=== PATIENT | female | born 1990 | race Caucasian/White ===

== ENCOUNTER 2018-06-18 10:41 | Emergency (ER) | payer OTHER ==
[~2018-06-18] VITALS: Ht 162.6 cm; Wt 86.2 kg
[2018-06-18 11:02] VITALS: BP 117/69
[2018-06-18 11:09] LABS: BILIRUBIN,URINE NEGATIVE (NEG); CLARITY,URINE CLEAR; NITRITE,URINE NEGATIVE (NEG); PH,URINE 5.5; PROTEIN,URINE NEGATIVE (NEG-TRACE); UROBILINOGEN,URINE 0.2 mg/dL (0.2 mg/dL)
[2018-06-18 11:28] LABS: COLOR,URINE STRAW; SQUAMOUS EPITHELIAL CELL,UR MOD /LPF
[2018-06-18 11:29] LABS: BACTERIA,URINE FEW /HPF (0-FEW); RBC,URINE OCC /HPF (0-2); WBC,URINE OCC /HPF (0-4)
[2018-06-18] MEDS ORDERED: metroNIDAZOLE 500 MG TABLET PO ONE (11:30)
[2018-06-18] MEDS ORDERED: AZITHROMYCIN 250 MG TABLET. PO ONE (11:30)
[2018-06-18] MEDS ORDERED: cefTRIAXone IM 250 MG VIAL IM ONE (11:30)
[2018-06-18] MEDS ORDERED: IBUPROFEN 600 MG TABLET. PO ONE (11:30)
--- NOTE | 2018-06-18 12:21 | PHYS DOC ---
Past Medical History Past Medical History: No Pertinent History Past Surgical History: No Surgical History Alcohol Use: Sober Drug Use: Opiates Adult General Chief Complaint Chief Complaint: PELVIC PAIN HPI HPI Patient is a 27 year old female no significant medical history who presents today complaining of mild pelvic pain and requests to have her Mirena removed. Patient states the pain began yesterday. She is not concerned about STDs. She has an appointment with A LOCAL clinic to remove the Mirena tomorrow but she could not wait until then. Patient denies any vaginal bleeding. Review of Systems Review of Systems Constitutional: Denies fever or chills [] GI: Reports pelvic pain, denies nausea, vomiting, bloody stools or diarrhea [] : Denies dysuria or hematuria [] Musculoskeletal: Denies back pain or joint pain [] Integument: Denies rash or skin lesions [] Neurologic: Denies headache, focal weakness or sensory changes [] All other systems were reviewed and found to be within normal limits, except as documented in this note. Current Medications Current Medications Current Medications Medications (Trade) Dose Ordered Sig/Roque Start Time Stop Time Status Last Admin Dose Admin Azithromycin (Zithromax) 1,000 mg 1X ONCE 06/18/18 11:30 06/18/18 11:31 DC 06/18/18 11:45 1,000 MG Ceftriaxone Sodium (Rocephin Im) 250 mg 1X ONCE 06/18/18 11:30 06/18/18 11:31 DC 06/18/18 11:44 250 MG Ibuprofen (Motrin) 600 mg 1X ONCE 06/18/18 11:30 06/18/18 11:31 DC 06/18/18 11:46 600 MG Metronidazole (Flagyl) 2,000 mg 1X ONCE 06/18/18 11:30 06/18/18 11:31 DC 06/18/18 11:44 2,000 MG Allergies Allergies Allergies Coded Allergies Type Severity Reaction Last Updated Verified No Known Drug Allergies 06/18/18 No Physical Exam Physical Exam Constitutional: Well developed, well nourished, no acute distress, non-toxic appearance. [] Abdomen: Bowel sounds normal, soft, no tenderness, no masses, no pulsatile masses. [] Pelvic exam External pelvic appears normal, cervix is closed, no CMT, Mirena strings noted in the cervical os, no adnexal tenderness. Skin: Warm, dry, no erythema, no rash. [] Back: No tenderness, no CVA tenderness. [] Extremities: No tenderness, no cyanosis, no clubbing, ROM intact, no edema. [] Neurologic: Alert and oriented X 3, normal motor function, normal sensory function, no focal deficits noted. [] Psychologic: Affect normal, judgement normal, mood normal. [] Current Patient Data Vital Signs Vital Signs Date Time Temp Pulse Resp B/P (MAP) Pulse Ox O2 Delivery O2 Flow Rate FiO2 06/18/18 11:02 97.7 91 20 117/69 (85) 98 Room Air 97.7 Lab Values Laboratory Tests Test 06/18/18 10:55 06/18/18 10:59 06/18/18 11:10 Urine Collection Type Unknown Urine Color Straw Urine Clarity Clear Urine pH 5.5 Urine Specific [place] 1.020 Urine Protein Negative mg/dL (NEG-TRACE) Urine Glucose (UA) Negative mg/dL (NEG) Urine Ketones (Stick) Negative mg/dL (NEG) Urine Blood Negative (NEG) Urine Nitrite Negative (NEG) Urine Bilirubin Negative (NEG) Urine Urobilinogen Dipstick 0.2 mg/dL (0.2 mg/dL) Urine Leukocyte Esterase Negative (NEG) Urine RBC Occ /HPF (0-2) Urine WBC Occ /HPF (0-4) Urine Squamous Epithelial Cells Mod /LPF Urine Bacteria Few /HPF (0-FEW) Urine Mucus Mod /LPF POC Urine HCG, Qualitative Hcg negative (Negative) Chlamydia DNA Probe Positive (Negative) A Neisseria gonorrhoeae DNA Probe Negative (Negative) Microbiology 06/18/18 Wet Prep - Final, Complete EKG EKG [] Radiology/Procedures Radiology/Procedures [] Course & Med Decision Making Course & Med Decision Making Pertinent Labs and Imaging studies reviewed. (See chart for details) This is a 27-year-old female patient presenting to the ED today complaining of pelvic pain and requesting we remove her Mirena. Patient has an appointment with a local clinic to have it removed tomorrow but she cannot wait until then. Instructed patient to follow-up with the clinic. Informed patient we do not routinely remove the IUD is in the emergency room. Dragon Disclaimer Dragon Disclaimer This electronic medical record was generated, in whole or in part, using a voice recognition dictation system. Departure Departure Impression: Primary Impression: Pelvic pain Disposition: HOME, SELF-CARE Condition: STABLE Referrals: UNKNOWN PCP NAME (PCP) follow up with [facility] tomorrow as scheduled Patient Instructions: Pelvic Pain, Female, [id number] Additional Instructions: You were evaluated in the emergency for pelvic pain. Please follow-up with [facility] tomorrow if you desire to have the IUD removed. We do not routinely remove IUDs in the emergency room. Attending Signature Attending Signature I have reviewed the PA/CHARGER OPERATOR HELPER's note and plan of care. I was available for consultation as needed during the patient's visit in the emergency department. I agree with the clinical impression, plan, and disposition. LANE MENDEZ APRN Jun 18, 2018 12:21 ALONSO LOREDO DO Jun 20, 2018 17:26
[2018-06-19 22:14] LABS: GC PROBE Negative (Negative)
== END 2018-06-18 12:38 | disposition home or self-care (01) ==
LOC: ER 10:41
DX: R10.2 Pelvic and perineal pain (principal)
CPT/HCPCS: 81001; 81025; 87491; 87591; 96372; 99284; J0696; Q0111; Q0144

== ENCOUNTER 2018-06-29 14:33 | Emergency (ER) | payer OTHER ==
[~2018-06-29] VITALS: Ht 162.6 cm; Wt 87.5 kg
[2018-06-29 14:53] VITALS: BP 136/69
[2018-06-29] MEDS ORDERED: HYDR25TA PO (15:17)
--- NOTE | 2018-06-29 15:17 | PHYS DOC ---
Past Medical History Past Medical History: Anxiety, Depression Additional Past Medical Histor: Alcoholism Past Surgical History: No Surgical History Alcohol Use: Sober Drug Use: Opiates Adult General Chief Complaint Chief Complaint: WITHDRAWL HPI HPI Patient is a 27 year old [f__sex] who presents with [] Review of Systems Review of Systems Constitutional: Denies fever or chills [] Eyes: Denies change in visual acuity, redness, or eye pain [] HENT: Denies nasal congestion or sore throat [] Respiratory: Denies cough or shortness of breath [] Cardiovascular: No additional information not addressed in HPI [] GI: Denies abdominal pain, nausea, vomiting, bloody stools or diarrhea [] : Denies dysuria or hematuria [] Musculoskeletal: Denies back pain or joint pain [] Integument: Denies rash or skin lesions [] Neurologic: Denies headache, focal weakness or sensory changes [] Endocrine: Denies polyuria or polydipsia [] All other systems were reviewed and found to be within normal limits, except as documented in this note. Allergies Allergies Allergies Coded Allergies Type Severity Reaction Last Updated Verified No Known Drug Allergies 06/18/18 No Physical Exam Physical Exam Constitutional: Well developed, well nourished, no acute distress, non-toxic appearance. [] HENT: Normocephalic, atraumatic, bilateral external ears normal, oropharynx moist, no oral exudates, nose normal. [] Eyes: PERRLA, EOMI, conjunctiva normal, no discharge. [] Neck: Normal range of motion, no tenderness, supple, no stridor. [] Cardiovascular:Heart rate regular rhythm, no murmur [] Lungs & Thorax: Bilateral breath sounds clear to auscultation [] Abdomen: Bowel sounds normal, soft, no tenderness, no masses, no pulsatile masses. [] Skin: Warm, dry, no erythema, no rash. [] Back: No tenderness, no CVA tenderness. [] Extremities: No tenderness, no cyanosis, no clubbing, ROM intact, no edema. [] Neurologic: Alert and oriented X 3, normal motor function, normal sensory function, no focal deficits noted. [] Psychologic: Affect normal, judgement normal, mood normal. [] Current Patient Data Vital Signs Vital Signs Date Time Temp Pulse Resp B/P (MAP) Pulse Ox O2 Delivery O2 Flow Rate FiO2 06/29/18 14:53 98.4 89 20 136/69 (91) 98 Room Air 98.4 EKG EKG [] Radiology/Procedures Radiology/Procedures [] Course & Med Decision Making Course & Med Decision Making Pertinent Labs and Imaging studies reviewed. (See chart for details) [] Dragon Disclaimer Dragon Disclaimer This electronic medical record was generated, in whole or in part, using a voice recognition dictation system. Departure Departure Impression: Primary Impression: Anxiety Disposition: HOME, SELF-CARE Condition: STABLE Referrals: UNKNOWN PCP NAME (PCP) Patient Instructions: Anxiety and Panic Attacks Additional Instructions: Follow-up with your pharmacy on Sunday or call [facility] to straighten it your prescriptions. If worsening return to the emergency department. Scripts Hydroxyzine Hcl (HYDROXYZINE HCL) 25 Mg Tablet 1 TAB PO BID for anxiety, #15 TAB Prov: LEXX HODGSON APRN 06/29/18 LEXX HODGSON APRN Jun 29, 2018 15:17
== END 2018-06-29 15:20 | disposition home or self-care (01) ==
LOC: ER 14:33
DX: F41.9 Anxiety disorder, unspecified (principal); F32.9 Major depressive disorder, single episode, unspecified; F10.20 Alcohol dependence, uncomplicated; Y90.9 Presence of alcohol in blood, level not specified
CPT/HCPCS: 99284

== ENCOUNTER 2018-08-08 20:03 | Emergency (ER) | payer OTHER ==
[~2018-08-08] VITALS: Ht 162.6 cm; Wt 90.7 kg
[~2018-08-08 20:03] MED LIST: HYDR25TA PO
[2018-08-08 21:13] LABS: BILIRUBIN,URINE NEGATIVE (NEG); CLARITY,URINE CLEAR; COLOR,URINE YELLOW; NITRITE,URINE NEGATIVE (NEG); PH,URINE 6.5; PROTEIN,URINE NEGATIVE (NEG-TRACE)
[2018-08-08 21:19] LABS: BACTERIA,URINE 0 /HPF (0-FEW); RBC,URINE 0 /HPF (0-2); SPERM,URINE PRESENT /HPF; SQUAMOUS EPITHELIAL CELL,UR FEW /LPF; WBC,URINE RARE /HPF (0-4)
[2018-08-08 21:26] LABS: BASO # 0.1 x10^3/uL (0.0-0.2); BASO % 1 % (0-3); EOS % 0 % (0-3); HEMATOCRIT 39.5 % (36.0-47.0); HEMOGLOBIN 13.8 g/dL (12.0-15.5); LYMPH # 2.4 x10^3/uL (1.0-4.8); LYMPH % 25 % (24-48); MEAN CORPUSCULAR HEMOGLOBIN 32 pg (25-35); MEAN CORPUSCULAR HGB CONC 35 g/dL (31-37); MEAN CORPUSCULAR VOLUME 92 fL (79-100); MONO # 0.5 x10^3/uL (0.0-1.1); MONO % 6 % (0-9); NEUT # 6.7 x10^3uL (1.8-7.7); NEUT % 69 % (31-73); PLATELET COUNT 207 x10^3/uL (140-400); RED BLOOD COUNT 4.28 x10^6/uL (3.50-5.40); RED CELL DISTRIBUTION WIDTH 13.7 % (11.5-14.5); WHITE BLOOD COUNT 9.7 x10^3/uL (4.0-11.0)
[2018-08-08 21:38] LABS: CALCIUM 9.5 mg/dL (8.5-10.1); CREATININE 0.8 mg/dL (0.6-1.0); GFR 87.4; POTASSIUM 3.7 mmol/L (3.5-5.1)
[2018-08-08 21:44] LABS: ALBUMIN 3.5 g/dL (3.4-5.0); ALBUMIN/GLOBULIN RATIO 0.9 (1.0-1.7); TOTAL BILIRUBIN 0.5 mg/dL (0.2-1.0); TOTAL PROTEIN 7.5 g/dL (6.4-8.2)
[2018-08-08 23:31] VITALS: BP 120/58
--- NOTE | 2018-08-08 23:49 | RAD ---
OB <14 WKS W/TV Clinical Indication: ABD PAIN, DETOX, + PREG TEST<, . BETA 857 Comparison: None. TECHNIQUE: Real-time ultrasound imaging of the pelvis using transabdominal and transvaginal window is performed. Findings: Retroverted uterus. Uterus measures 9.4 x 5.5 x 4.7 cm. No focal abnormality. Cervix length is 3.8 cm. The endometrial stripe is thickened measuring 2.1 cm. There is a tiny cystic structure along the endometrium near the fundus. No internal contents are seen. If this is a gestational sac it measures 0.3 cm, 5 weeks and 0 days. EDC ultrasound is 04/10/2019. Normal blood flow in the maternal ovaries. There is a right ovary functional cyst measuring up to 2.9 cm. IMPRESSION: Tiny intrauterine cystic structure may be an early gestational sac. If so, the estimated sonographic gestational age is 5 weeks and 0 days. A yolk sac or pole are not identified which is not unexpected. A failed first trimester or ectopic are other considerations. Recommend serial quantitative beta hCG and consideration of short-term follow-up ultrasound to definitively evaluate for IUP. Electronically signed by: Chaim Jacome MD (08/08/2018 11:44 PM) [facility]
--- NOTE | 2018-08-08 23:56 | PHYS DOC ---
Past Medical History Past Medical History: Anxiety, Depression Additional Past Medical Histor: Alcoholism, FORMER DRUG ABUSE Past Surgical History: No Surgical History Alcohol Use: Heavy Additional Information: PINT OF VODKA DAILY, TODAY IS FIRST DAY SOBER Drug Use: Marijuana Adult General Chief Complaint Chief Complaint: ABDOMINAL PAIN IN HPI HPI Patient is a 27 year old female who presents with last missed her period being June 19, 2018. Patient is having lower abdominal pain that started this morning. Patient states that she is an alcoholic and drinks a pint or more of hard liquor a day. Patient also states that she was diagnosed with a UTI 5 days ago she is currently taking Keflex antibiotic. Patient does have a primary care but she does not have an OB doctor. Patient denies vaginal bleeding or vaginal discharge. Patient's last drink was one pint yesterday. Review of Systems Review of Systems Constitutional: Denies fever or chills [] Eyes: Denies change in visual acuity, redness, or eye pain [] HENT: Denies nasal congestion or sore throat [] Respiratory: Denies cough or shortness of breath [] Cardiovascular: No additional information not addressed in HPI [] GI: Denies abdominal pain, nausea, vomiting, bloody stools or diarrhea [] : Denies dysuria or hematuria [] Musculoskeletal: Denies back pain or joint pain [] Integument: Denies rash or skin lesions [] Neurologic: Denies headache, focal weakness or sensory changes [] Endocrine: Denies polyuria or polydipsia [] All other systems were reviewed and found to be within normal limits, except as documented in this note. Allergies Allergies Allergies Coded Allergies Type Severity Reaction Last Updated Verified No Known Drug Allergies 06/18/18 No Physical Exam Physical Exam Constitutional: Well developed, well nourished, no acute distress, non-toxic appearance. [] HENT: Normocephalic, atraumatic, bilateral external ears normal, oropharynx moist, no oral exudates, nose normal. [] Eyes: PERRLA, EOMI, conjunctiva normal, no discharge. [] Neck: Normal range of motion, no tenderness, supple, no stridor. [] Cardiovascular:Heart rate regular rhythm, no murmur [] Lungs & Thorax: Bilateral breath sounds clear to auscultation [] Abdomen: Bowel sounds normal, soft, no tenderness, no masses, no pulsatile masses. [] Skin: Warm, dry, no erythema, no rash. [] Back: No tenderness, no CVA tenderness. [] Extremities: No tenderness, no cyanosis, no clubbing, ROM intact, no edema. [] Neurologic: Alert and oriented X 3, normal motor function, normal sensory function, no focal deficits noted. [] Psychologic: Affect normal, judgement normal, mood normal. [] Current Patient Data Vital Signs Vital Signs Date Time Temp Pulse Resp B/P (MAP) Pulse Ox O2 Delivery O2 Flow Rate FiO2 08/08/18 23:01 76 114/70 (85) 98 Room Air 08/08/18 20:47 97.7 19 97.7 Lab Values Laboratory Tests Test 08/08/18 20:00 08/08/18 20:14 08/08/18 21:15 Urine Collection Type Unknown Urine Color Yellow Urine Clarity Clear Urine pH 6.5 Urine Specific [place] 1.020 Urine Protein Negative mg/dL (NEG-TRACE) Urine Glucose (UA) Negative mg/dL (NEG) Urine Ketones (Stick) Negative mg/dL (NEG) Urine Blood Negative (NEG) Urine Nitrite Negative (NEG) Urine Bilirubin Negative (NEG) Urine Urobilinogen Dipstick 1.0 mg/dL (0.2 mg/dL) Urine Leukocyte Esterase Negative (NEG) Urine RBC 0 /HPF (0-2) Urine WBC Rare /HPF (0-4) Urine Squamous Epithelial Cells Few /LPF Urine Bacteria 0 /HPF (0-FEW) Urine Mucus Slight /LPF Urine Sperm Present /HPF POC Urine HCG, Qualitative Hcg positive (Negative) White Blood Count 9.7 x10^3/uL (4.0-11.0) Red Blood Count 4.28 x10^6/uL (3.50-5.40) Hemoglobin 13.8 g/dL (12.0-15.5) Hematocrit 39.5 % (36.0-47.0) Mean Corpuscular Volume 92 fL (79-100) Mean Corpuscular Hemoglobin 32 pg (25-35) Mean Corpuscular Hemoglobin Concent 35 g/dL (31-37) Red Cell Distribution Width 13.7 % (11.5-14.5) Platelet Count 207 x10^3/uL (140-400) Neutrophils (%) (Auto) 69 % (31-73) Lymphocytes (%) (Auto) 25 % (24-48) Monocytes (%) (Auto) 6 % (0-9) Eosinophils (%) (Auto) 0 % (0-3) Basophils (%) (Auto) 1 % (0-3) Neutrophils # (Auto) 6.7 x10^3uL (1.8-7.7) Lymphocytes # (Auto) 2.4 x10^3/uL (1.0-4.8) Monocytes # (Auto) 0.5 x10^3/uL (0.0-1.1) Eosinophils # (Auto) 0.0 x10^3/uL (0.0-0.7) Basophils # (Auto) 0.1 x10^3/uL (0.0-0.2) Maternal Serum HCG Beta Subunit 857 mIU/mL (0-5) H Sodium Level 136 mmol/L (136-145) Potassium Level 3.7 mmol/L (3.5-5.1) Chloride Level 99 mmol/L (98-107) Carbon Dioxide Level 27 mmol/L (21-32) Anion Gap 10 (6-14) Blood Urea Nitrogen 11 mg/dL (7-20) Creatinine 0.8 mg/dL (0.6-1.0) Estimated GFR (Cockcroft-Gault) 87.4 BUN/Creatinine Ratio 14 (6-20) Glucose Level 81 mg/dL (70-99) Calcium Level 9.5 mg/dL (8.5-10.1) Total Bilirubin 0.5 mg/dL (0.2-1.0) Aspartate Amino Transferase (AST) 36 U/L (15-37) Alanine Aminotransferase (ALT) 48 U/L (14-59) Alkaline Phosphatase 78 U/L (46-116) Total Protein 7.5 g/dL (6.4-8.2) Albumin 3.5 g/dL (3.4-5.0) Albumin/Globulin Ratio 0.9 (1.0-1.7) L Lipase 76 U/L (73-393) Ethyl Alcohol Level < 10 mg/dL (0-10) Laboratory Tests 08/08/18 21:15 Laboratory Tests 08/08/18 21:15 Microbiology 08/08/18 Wet Prep - Final, Complete EKG EKG [] Radiology/Procedures Radiology/Procedures [] Impressions: IMAGING REPORT Signed PATIENT: ELLY SORENSEN ACCOUNT: [id number] : 1990 LOCATION: ER AGE: 27 SEX: F EXAM STATUS: REG ER ORD. PHYSICIAN: TACHO CALI APRN REASON: LMP 11/14 AND ABDOMINAL PAIN PROCEDURE: OB <14 WKS W/TV OB <14 WKS W/TV Clinical Indication: ABD PAIN, DETOX, + PREG TEST<, . BETA 857 Comparison: None. TECHNIQUE: Real-time ultrasound imaging of the pelvis using transabdominal and transvaginal window is performed. Findings: Retroverted uterus. Uterus measures 9.4 x 5.5 x 4.7 cm. No focal abnormality. Cervix length is 3.8 cm. The endometrial stripe is thickened measuring 2.1 cm. There is a tiny cystic structure along the endometrium near the fundus. No internal contents are seen. If this is a gestational sac it measures 0.3 cm, 5 weeks and 0 days. EDC ultrasound is 04/10/2019. Normal blood flow in the maternal ovaries. There is a right ovary functional cyst measuring up to 2.9 cm. IMPRESSION: Tiny intrauterine cystic structure may be an early gestational sac. If so, the estimated sonographic gestational age is 5 weeks and 0 days. A yolk sac or pole are not identified which is not unexpected. A failed first trimester or ectopic are other considerations. Recommend serial quantitative beta hCG and consideration of short-term follow-up ultrasound to definitively evaluate for IUP. Electronically signed by: Chaim Jacome MD (08/08/2018 11:44 PM) [facility] DICTATED and SIGNED BY: CHAIM JACOME MD DATE: 08/08/18 2336 Course & Med Decision Making Course & Med Decision Making Patient is a 27 year old female who presents with last missed her period being June 19, 2018. Patient is having lower abdominal pain that started this morning. Patient states that she is an alcoholic and drinks a pint or more of hard liquor a day. Patient also states that she was diagnosed with a UTI 5 days ago she is currently taking Keflex antibiotic. Patient does have a primary care but she does not have an OB doctor. Patient denies vaginal bleeding or vaginal discharge. Patient's last drink was one pint yesterday. Alert and oriented. Skin is pink warm and dry. Mucous membranes moist. Patient has lower mid abdominal tenderness with palpation but rest of abdomen is soft and nontender. Lungs are clear to auscultation all lobes. Heart rate regular without murmur. Afebrile. Patient denies any dysuria. Patient's chest for Chlamydia and gonorrhea and a wet mount is done per pelvic exam. Patient refuses any treatment for STDs at this time. Wet mount is negative for findings, and her urinalysis is negative for infection, blood type is O+. Patient denies any pain at this time. She denies any nausea or diarrhea. She is no known drug allergies. Pelvic Exam: Lamps Tester And Inspector present Abdomen: Nontender External Genitalia: Normal Skin Speculum: Normal vaginal mucosa, normal cervical discharge Bimanual: No adnexal masses or tenderness, No CMT Blood work is unremarkable. Pelvic ultrasound shows Tiny intrauterine cystic structure may be an early gestational sac. If so,the estimated sonographic gestational age is 5 weeks and 0 days. A yolk sac or pole are not identified which is not unexpected. A failed first trimester or ectopic are other considerations. Recommend serial quantitative beta hCG and consideration of short-term follow-up ultrasound to definitively evaluate for IUP. Patient is discharged home and told to call tomorrow morning her primary care and OB doctor. Patient is given description of withdrawal symptoms. Vital signs are stable and patient is stable at this time. Patient is discharged home. Dragon Disclaimer Dragon Disclaimer This electronic medical record was generated, in whole or in part, using a voice recognition dictation system. Departure Departure Impression: Primary Impression: Abdominal pain in Disposition: 01 HOME, SELF-CARE Condition: STABLE Referrals: UNKNOWN PCP NAME (PCP) JOHNY CAMEJO Jr, MD Patient Instructions: Abdominal Pain During Additional Instructions: Call primary care and OB doctor tomorrow morning. Continue taking antibiotic for UTI and started taking vitamins. Do not drink or do drugs. Problem Qualifiers Primary Impression: Abdominal pain in Trimester: first trimester Qualified Codes: O26.891 - Other specified related conditions, first trimester; R10.9 - Unspecified abdominal pain TACHO CALI STUDY ABROAD ADVISOR Aug 08, 2018 23:56
[2018-08-12 13:19] LABS: GC PROBE Negative (Negative)
== END 2018-08-09 00:12 | disposition home or self-care (01) ==
LOC: ER 20:03
DX: O26.891 Other specified pregnancy related conditions, first trimester (principal); R10.30 Lower abdominal pain, unspecified; Z3A.01 Less than 8 weeks gestation of pregnancy; O99.311 Alcohol use complicating pregnancy, first trimester; Y90.0 Blood alcohol level of less than 20 mg/100 ml
CPT/HCPCS: 36415; 76801; 76817; 80053; 81001; 81025; 83690; 84702; 85025; 86850; 86900; 86901; 87491; 87591; 99284; G0480; Q0111

== ENCOUNTER 2018-10-10 10:35 | Emergency (ER) | payer SELFPAY ==
[~2018-10-10] VITALS: Ht 162.6 cm; Wt 96.6 kg
[2018-10-10 10:58] LABS: BILIRUBIN,URINE NEGATIVE (NEG); CLARITY,URINE CLEAR; COLOR,URINE YELLOW; NITRITE,URINE NEGATIVE (NEG); PROTEIN,URINE NEGATIVE (NEG-TRACE)
[2018-10-10 11:14] LABS: SQUAMOUS EPITHELIAL CELL,UR MOD /LPF
[2018-10-10 11:16] LABS: BACTERIA,URINE 0 /HPF (0-FEW); RBC,URINE 0 /HPF (0-2); WBC,URINE OCC /HPF (0-4)
[2018-10-10] MEDS ORDERED: cefTRIAXone IM 250 MG VIAL IM ONE (11:45)
[2018-10-10] MEDS ORDERED: AZITHROMYCIN 250 MG TABLET. PO ONE (11:45)
[2018-10-10 12:00] VITALS: BP 127/83
--- NOTE | 2018-10-10 12:07 | PHYS DOC ---
Past Medical History Past Medical History: Anxiety, Depression Additional Past Medical Histor: Alcoholism, FORMER DRUG ABUSE Past Surgical History: No Surgical History Alcohol Use: Heavy Drug Use: Marijuana Adult General Chief Complaint Chief Complaint: PELVIC PAIN HPI HPI Patient is a 27 year old female, accompanied by her significant other, with complaints of needing treatment for chlamydia. Patient states that she was diagnosed with chlamydia two months ago, and treated for it but her partner never got treated. She denies any fever, abdominal pain, back pain, nausea, vomiting, diarrhea, dysuria, increase urinary frequency, or hematuria. Patient reports foul-smelling yellow vaginally discharge. patient states she is currently , 4, para 3. She reports concern that the chlamydia could affect the baby. She denies any vaginal bleeding, pelvic pain, or cramping. her LMP was June [id number]. Review of Systems Review of Systems Constitutional: Denies fever or chills [] Eyes: Denies changes HENT: Denies nasal congestion or sore throat [] Respiratory: Denies cough or shortness of breath [] Cardiovascular: No additional information not addressed in HPI [] GI: Denies abdominal pain, nausea, vomiting, or diarrhea [] : see HPI Musculoskeletal: Denies back pain Integument: Denies rash or skin lesions [] Neurologic: Denies headache Current Medications Current Medications Current Medications Medications (Trade) Dose Ordered Sig/Roque Start Time Stop Time Status Last Admin Dose Admin Azithromycin (Zithromax) 1,000 mg 1X ONCE 10/10/18 11:45 10/10/18 11:46 DC 10/10/18 11:58 1,000 MG Ceftriaxone Sodium (Rocephin Im) 250 mg 1X ONCE 10/10/18 11:45 10/10/18 11:46 DC 10/10/18 11:58 250 MG Allergies Allergies Allergies Coded Allergies Type Severity Reaction Last Updated Verified No Known Drug Allergies 06/18/18 No Physical Exam Physical Exam Constitutional: Well developed, well nourished, no acute distress, non-toxic appearance. [] HENT: Normocephalic, atraumatic, bilateral external ears normal, nose normal. [ ] Eyes: conjunctiva normal, no discharge. [] Neck: Normal range of motion, no stridor. [] Pelvic Exam: Salad Counter Attendant present Deedee RN Abdomen: Nontender, soft External Genitalia: Normal Skin Speculum: Normal vaginal mucosa, purulent cervical discharge, os closed Bimanual: No adnexal masses or tenderness, CMT Skin: Warm, dry, no erythema, no rash. [] Extremities: No cyanosis, ROM intact Neurologic: Alert and oriented X 3, no focal deficits noted. [] Psychologic: Affect normal, judgement normal, mood normal. [] Current Patient Data Vital Signs Vital Signs Date Time Temp Pulse Resp B/P (MAP) Pulse Ox O2 Delivery O2 Flow Rate FiO2 10/10/18 12:00 92 16 127/83 (98) 98 Room Air 10/10/18 11:00 98.1 98.1 Lab Values Laboratory Tests Test 10/10/18 10:46 10/10/18 10:51 10/10/18 11:32 Urine Collection Type Unknown Urine Color Yellow Urine Clarity Clear Urine pH 6.0 Urine Specific [place] 1.025 Urine Protein Negative mg/dL (NEG-TRACE) Urine Glucose (UA) Negative mg/dL (NEG) Urine Ketones (Stick) Negative mg/dL (NEG) Urine Blood Negative (NEG) Urine Nitrite Negative (NEG) Urine Bilirubin Negative (NEG) Urine Urobilinogen Dipstick 1.0 mg/dL (0.2 mg/dL) Urine Leukocyte Esterase Negative (NEG) Urine RBC 0 /HPF (0-2) Urine WBC Occ /HPF (0-4) Urine Squamous Epithelial Cells Mod /LPF Urine Bacteria 0 /HPF (0-FEW) Urine Mucus Mod /LPF POC Urine HCG, Qualitative Hcg positive (Negative) Chlamydia DNA Probe Positive (Negative) A Neisseria gonorrhoeae DNA Probe Negative (Negative) Microbiology 10/10/18 Wet Prep - Final, Complete EKG EKG [] Radiology/Procedures Radiology/Procedures [] Course & Med Decision Making Course & Med Decision Making Pertinent Labs and Imaging studies reviewed. (See chart for details) dx: contact with and suspected exposure to infections with a predominately sexual mode of transmission, concern about sexually-transmitted disease in female patient was treated prophylactically with 250 mg of IM Rocephin, and 1 g of PO Zithromax and instructed to avoid having intercourse until the results of gonorrhea and chlamydia testing are available. patient notified that these results will not be available for 48 hours. If one or both of these tests is positive, patient needs to to refrain from intercourse for approximately 2 weeks following the treatment of any current partners. Follow up with your primary care doctor if symptoms persist, return to the ER if symptoms worsen. Pt verbalized an understanding of discharge, medications, follow-up, home care, and return to ED precautions, was in agreement with POC. [] Dragon Disclaimer Dragon Disclaimer This electronic medical record was generated, in whole or in part, using a voice recognition dictation system. Departure Departure Impression: Primary Impression: Contact with and (suspected) exposure to infections with a predominantly sexual mode of transmission Additional Impression: Concern about sexually transmitted disease in female without diagnosis Disposition: HOME, SELF-CARE Condition: STABLE Referrals: UNKNOWN PCP NAME (PCP) Patient Instructions: Sexually Transmitted Diseases (STD) In Additional Instructions: You were treated with 250 mg of IM Rocephin, and 1 g of PO Zithromax. Avoid having intercourse until the results of gonorrhea and chlamydia testing are available, these results will not be available for 48 hours. If one or both of these tests is positive, you need to refrain from intercourse for approximately 2 weeks following the treatment of any current partners. Follow up with your primary care doctor if symptoms persist, return to the ER if symptoms worsen. Problem Qualifiers GUCCI ENCINAS APRN Oct 10, 2018 12:06
[2018-10-14 14:19] LABS: GC PROBE Negative (Negative)
== END 2018-10-10 12:28 | disposition home or self-care (01) ==
LOC: ER 10:35
DX: O98.319 Other infections with a predominantly sexual mode of transmission complicating pregnancy, unspecified trimester (principal); O99.340 Other mental disorders complicating pregnancy, unspecified trimester; O99.310 Alcohol use complicating pregnancy, unspecified trimester; Z20.2 Contact with and (suspected) exposure to infections with a predominantly sexual mode of transmission; F41.9 Anxiety disorder, unspecified; F32.9 Major depressive disorder, single episode, unspecified; F10.20 Alcohol dependence, uncomplicated; Y90.9 Presence of alcohol in blood, level not specified; Z3A.00 Weeks of gestation of pregnancy not specified
CPT/HCPCS: 81001; 81025; 96372; 99283; J0696; Q0111; Q0144; 36415; 87491; 87591

== ENCOUNTER 2018-10-10 23:39 | Emergency (ER) | payer SELFPAY ==
[~2018-10-10] VITALS: Ht 162.6 cm; Wt 96.6 kg
[2018-10-10 23:39] VITALS: BP 157/84
[2018-10-11] MEDS ORDERED: ACETAMINOPHEN 325 MG TABLET. PO ONE (00:15)
--- NOTE | 2018-10-11 00:15 | PHYS DOC ---
Past Medical History Past Medical History: Anxiety, Depression Additional Past Medical Histor: Alcoholism, FORMER DRUG ABUSE (ERIN DURAN) Past Surgical History: No Surgical History (ERIN DURAN) Alcohol Use: None Drug Use: None (ERIN DURAN) Adult General Chief Complaint Chief Complaint: Neck Pain [facility] HPI Patient is a 27 year old female whom is 15 weeks () presents to the ED complaining of neck pain times one hour ago. Patient states she was laying in a hammock and slipped and fell back and hit the ground. States it was a whiplash type injury. States she landed on her upper back. Describes the pain as sharp. Rates the pain as 6 out of 10. States she has not taken anything for the pain. States she came to get checked out because she was having neck pain. Denies decreased range of motion, fever, nausea/vomiting, abdominal pain, vaginal discharge/bleeding, flank pain, chest pain, shortness of breath or symptoms prior to fall. (ERIN DURAN) Review of Systems Review of Systems Constitutional: Denies fever or chills [] Eyes: Denies change in visual acuity, redness, or eye pain [] HENT: Denies nasal congestion or sore throat [] Respiratory: Denies cough or shortness of breath [] Cardiovascular: No additional information not addressed in HPI [] GI: Denies abdominal pain, nausea, vomiting, bloody stools or diarrhea [] : Denies dysuria or hematuria [] Musculoskeletal: Complains of neck pain. Denies back pain or joint pain [] Integument: Denies rash or skin lesions [] Neurologic: Denies headache, focal weakness or sensory changes [] All other systems were reviewed and found to be within normal limits, except as documented in this note. (ERIN DURAN) Current Medications Current Medications Current Medications Medications (Trade) Dose Ordered Sig/Roque Start Time Stop Time Status Last Admin Dose Admin Acetaminophen (Tylenol) 650 mg 1X ONCE 10/11/18 00:15 10/11/18 00:22 DC 10/11/18 00:19 650 MG (IHSAN DIAZ MD) Allergies Allergies Allergies Coded Allergies Type Severity Reaction Last Updated Verified No Known Drug Allergies 06/18/18 No (IHSAN DIAZ MD) Physical Exam Physical Exam Constitutional: Well developed, well nourished, no acute distress, non-toxic appearance. [] HENT: Normocephalic, atraumatic. Mild lateral paraspinal cervical tenderness. FROM. NV intact. No overlying skin changes. Eyes: PERRLA, EOMI, conjunctiva normal, no discharge. [] Neck: Normal range of motion, no tenderness, supple, no stridor. [] Cardiovascular:Heart rate regular rhythm, no murmur [] Lungs & Thorax: Bilateral breath sounds clear to auscultation [] Abdomen: Bowel sounds normal, soft, no tenderness, no masses, no pulsatile masses. [] Skin: Warm, dry, no erythema, no rash. [] Back: No tenderness, no CVA tenderness. [] Extremities: No tenderness, no cyanosis, no clubbing, ROM intact, no edema. [] Neurologic: Alert and oriented X 3, normal motor function, normal sensory function, no focal deficits noted. [] Psychologic: Affect normal, judgement normal, mood normal. [] (ERIN DURAN) Current Patient Data Vital Signs Vital Signs Date Time Temp Pulse Resp B/P (MAP) Pulse Ox O2 Delivery O2 Flow Rate FiO2 10/10/18 23:39 97.9 97 20 157/84 (108) 98 Room Air 97.9 (IHSAN DIAZ MD) EKG EKG [] (ERIN DURAN) Radiology/Procedures Radiology/Procedures [] (ERIN DURAN) Course & Med Decision Making Course & Med Decision Making Pertinent Labs and Imaging studies reviewed. (See chart for details) []No bony tenderness. No imaging warranted. Patient's pain improved with Tylenol and ice in the ED. Discussed symptomatic treatment and [id number] medications safe for . Discussed the importance of follow-up this week and reasons to return to the ED. Patient understands and agrees with plan. (ERIN DURAN) Course & Med Decision Making Staff Physician Addendum: I was working in the ER during the course of this patient's visit. I was available for consultation as needed, but I was not directly involved in the care of this patient. (IHSAN DIAZ MD) Dragon Disclaimer Dragon Disclaimer This electronic medical record was generated, in whole or in part, using a voice recognition dictation system. (ERIN DURAN) Departure Departure Impression: Primary Impression: Cervical strain Disposition: HOME, SELF-CARE Condition: IMPROVED Referrals: UNKNOWN PCP NAME (PCP) CARLOS MANUEL GAO II, MD, MICHAEL M MD Patient Instructions: Cervical Strain and Sprain with [facility] ERIN DURAN Oct 11, 2018 00:15 IHSAN DIAZ MD Oct 12, 2018 05:31
== END 2018-10-11 00:47 | disposition home or self-care (01) ==
LOC: ER 23:39
DX: O9A.212 Injury, poisoning and certain other consequences of external causes complicating pregnancy, second trimester (principal); S16.1XXA Strain of muscle, fascia and tendon at neck level, initial encounter; O99.342 Other mental disorders complicating pregnancy, second trimester; F41.8 Other specified anxiety disorders; Z3A.15 15 weeks gestation of pregnancy; W01.0XXA Fall on same level from slipping, tripping and stumbling without subsequent striking against object, initial encounter; Y93.89 Activity, other specified; Y92.89 Other specified places as the place of occurrence of the external cause; Y99.8 Other external cause status
CPT/HCPCS: 99284